=== PATIENT | female | born 1985 | race Caucasian/White ===

== ENCOUNTER 2017-01-10 09:25 | Emergency (ER) | payer OTHER | END 2017-01-10 14:35 | disposition home or self-care (01) | DX: K80.20 Calculus of gallbladder without cholecystitis without obstruction (principal); E28.2 Polycystic ovarian syndrome ==

== ENCOUNTER 2017-02-26 06:11 | Day surgery (SDC) | payer OTHER ==
[2017-02-26] MEDS ORDERED: LACTATED RINGERS 1,000 ML IV ONE ×3 (07:03→11:51)
[2017-02-26] MEDS ORDERED: ceFAZolin 2 GM/50 ML 50 ML IV ONE (07:06)
[2017-02-26] MEDS ORDERED: PHENYLEPHRINE 10 MG/ML VIAL IV ONE (07:25)
[2017-02-26] MEDS ORDERED: KETAMINE 500 MG/10 ML VIAL IVP ONE (07:25)
[2017-02-26] MEDS ORDERED: ONDANSETRON 4 MG/2 ML VIAL IVP ONE (07:25)
[2017-02-26] MEDS ORDERED: SUCCINYLCHOLINE 200 MG/10 ML VIAL IVP ONE (07:25)
[2017-02-26] MEDS ORDERED: KETOROLAC 30 MG/ML VIAL IVP ONE (07:25)
[2017-02-26] MEDS ORDERED: PROPOFOL 200 MG/20 ML VIAL IVP ONE (07:25)
[2017-02-26] MEDS ORDERED: LIDOCAINE-MPF 2% 5 ML VIAL IM ONE (07:25)
[2017-02-26] MEDS ORDERED: MIDAZOLAM 2 MG/2 ML VIAL IVP ONE (07:25)
[2017-02-26] MEDS ORDERED: fentaNYL 100 MCG/2 ML VIAL IVP ONE (07:25)
[2017-02-26] MEDS ORDERED: ROCURONIUM 50 MG/5 ML VIAL IVP ONE (07:25)
[2017-02-26] MEDS ORDERED: DEXAMETHASONE 4 MG/ML VIAL IVP ONE (07:25)
[2017-02-26] MEDS ORDERED: BUPIVACAINE 0.5% PF 30 ML VIAL INFIL ONE ×2 (08:14)
[2017-02-26] MEDS ORDERED: HYDROcod/ACETAM 5/325 MG TABLET ONE (10:23)
[2017-02-26] MEDS ORDERED: ONDANSETRON 4 MG/2 ML VIAL ONE (11:32)
== END 2017-02-26 06:12 | disposition home or self-care (01) ==
PROC: 0FT44ZZ Resection of Gallbladder, Percutaneous Endoscopic Approach (ICD-10-PCS; principal; 2017-02-26 07:30)
DX: K80.10 Calculus of gallbladder with chronic cholecystitis without obstruction (principal); K82.8 Other specified diseases of gallbladder; Z88.5 Allergy status to narcotic agent; E66.9 Obesity, unspecified; Z68.39 Body mass index [BMI] 39.0-39.9, adult
CPT/HCPCS: 47562; 81025; A9270; J0690; J7120

== ENCOUNTER 2017-03-01 09:29 | Emergency (ER) | payer OTHER ==
--- NOTE | 2017-03-01 12:22 | ED Physician Documentation ---
History of Present Illness - Stated complaint Stated Complaint: VOMITING - Chief complaint Chief Complaint: Neuro - Additonal information Additional information: 31-year-old female with no past medical history status post cholecystectomy 3 days ago here with headache, nausea, vomiting. Patient developed a mild headache last night, resolved with 2 Vicodin. Today, she has been having worse pain in her head and developed nausea and vomiting. Vomiting is nonbloody and nonbilious. She also reports increase in her right upper part her pain. She denies fevers, but has had chills and sweats today. She denies any associated numbness or weakness. Review of Systems Ten Systems: 10 systems reviewed and negative Constitutional: reports: Chills. denies: Fever Cardiac: denies: Chest pain / pressure Respiratory: denies: Dyspnea GI: reports: Abdominal Pain, Nausea, Vomiting Neurologic: reports: Headache PD PAST MEDICAL HISTORY - Past Medical History Cardiovascular: None Respiratory: None, Other Endocrine/Autoimmune: Other GI: Other : None HEENT: Other Psych: Depression, Anxiety Musculoskeletal: None Derm: None - Past Surgical History Past Surgical History: No General: Cholecystectomy - Present Medications Home Medications: Ambulatory Orders Medication Instructions Recorded Confirmed Cephalexin [Keflex] 500 mg PO Q6H 7 Days 03/01/17 Ondansetron Odt [Zofran] 4 mg TL Q6H PRN #10 tablet 03/01/17 - Allergies Allergies/Adverse Reactions: Allergies Allergy/AdvReac Type Severity Reaction Status Date / Time codeine AdvReac Nausea Verified 03/01/17 09:36 oxycodone AdvReac Nausea Verified 03/01/17 09:36 - Social History Does the pt smoke?: No Smoking Status: Never smoker Does the pt drink ETOH?: Yes Does the pt have substance abuse?: No - Immunizations Immunizations are current?: Yes PD ED PE NORMAL - Vitals Vital signs reviewed: Yes - General General: Alert and oriented X 3, No acute distress - HEENT HEENT: PERRL - Neck Neck: Supple, no meningeal sign - Cardiac Cardiac: RRR, No murmur - Respiratory Respiratory: Clear bilaterally - Abdomen Abdomen: Normal bowel sounds, Soft, Non distended, Other (Right upper quadrant tenderness to palpation. Healing port sites with Steri-Strips over them.) - Derm Derm: Warm and dry - Extremities Extremities: No deformity - Neuro Neuro: Alert and oriented X 3, nursery attendant 2-12 intact, No motor deficit, No sensory deficit, Normal speech (Normal finger-nose, normal heel ramesh, no pronator drift) - Psych Psych: Normal mood, Normal affect Results - Vitals Vitals: Vital Signs - 24 hr 03/01/17 03/01/17 03/01/17 09:34 12:13 13:10 Temperature 36.7 C Heart Rate 79 95 86 Respiratory 18 18 18 Rate Blood Pressure 108/73 110/61 103/66 O2 Saturation 100 100 100 03/01/17 03/01/17 13:51 15:04 Temperature Heart Rate 74 86 Respiratory 18 16 Rate Blood Pressure 126/76 112/78 O2 Saturation 100 99 Oxygen O2 Source Room air - Labs Labs: Laboratory Tests 03/01/17 03/01/17 03/01/17 12:16 12:23 12:23 WBC 12.5 H RBC 4.92 Hgb 14.0 Hct 41.2 MCV 83.7 MCH 28.4 MCHC 34.0 RDW 13.1 Plt Count 270 MPV 9.8 Neut # 9.8 H Lymph # 2.0 [place] # 0.5 Eos # 0.1 Baso # 0.1 Absolute Nucleated RBC 0.00 Nucleated RBCs 0.0 Sodium 137 Potassium 4.2 Chloride 101 Carbon Dioxide 27 Anion Gap 9.0 BUN 9 Creatinine 0.8 Estimated GFR (MDRD) 85 L Glucose 92 Calcium 9.5 Total Bilirubin 0.6 AST 58 H ALT 77 H Alkaline Phosphatase 65 Total Protein 7.7 Albumin 4.4 Globulin 3.3 Albumin/Globulin Ratio 1.3 Lipase 25 Urine Color YELLOW Urine Clarity CLOUDY Urine pH 8.0 H Ur Specific [place] 1.015 Urine Protein NEGATIVE Urine Glucose (UA) NEGATIVE Urine Ketones NEGATIVE Urine Occult Blood TRACE-INTA Urine Nitrite NEGATIVE Urine Bilirubin NEGATIVE Urine Urobilinogen 0.2 (NORMAL) Ur Leukocyte Esterase MODERATE H Urine RBC 0-5 Urine WBC 11-25 H Ur Squamous Epith Cells MANY Squamous H Urine Bacteria Few Ur Microscopic Review INDICATED Urine Culture Comments NOT INDICATED Urine HCG, Qual NEGATIVE - Rads (name of study) ruq us Radiology: EMP read contemporaneously, See rad report (Fatty liver, postop changes, CBD 6 mm, no free fluid) PD MEDICAL DECISION MAKING - ED course Complexity details: reviewed results, re-evaluated patient, considered differential, d/w patient, d/w travel sales consultant ED course: 31-year-old female status post cholecystectomy 3 days ago here with nausea, vomiting, headache, not feeling well. Differential diagnosis includes but is not limited to postoperative infection versus retained biliary stone in the common bile duct versus electrolyte abnormality versus migraine headache. Patient's neurologic exam is normal. CBC shows mild leukocytosis. CMP shows mildly elevated LFTs. Patient was given fluid and Toradol in the emergency department, and felt much better. , general surgery, came to evaluate her. Her CBD on ultrasound was 6 mm. Patient tolerated by mouth and was amenable to discharge with Zofran and Keflex for UTI and followup with her primary care physician. She has been given very strict return precautions. This document was made in part using voice recognition software. While efforts are made to proofread this document, sound alike and grammatical errors may occur. Departure - Departure Disposition: 01 Home, Self Care Clinical Impression: Headache, Vomiting, Urinary tract infection Condition: Stable Instructions: ED Cephalgia Unspecified, ED UTI Cystitis Female, ED Vomiting Diarrhea Nonspecific Ad Follow-Up: Bobo Coates MD [Primary Care Provider] - Within 1 week Prescriptions: Cephalexin [Keflex] 500 mg PO Q6H 7 Days Ondansetron Odt [Zofran] 4 mg TL Q6H PRN #10 tablet PRN Reason: Nausea / Vomiting Comments: Please followup this week with your primary care physician. Take antibiotics as prescribed. Return to the ER for any worsening fevers, chills, abdominal pain, or for any other medical emergency.Your blood pressure was elevated today on check in to the emergency department. This does not mean that you have hypertension, it is a common phenomenon to check into the emergency department and have elevated blood pressure. I recommend that you see your primary care physician within the week to have it rechecked when you're feeling better. Discharge Date/Time: 03/01/17 15:05
[2017-03-01] MEDS: SODIUM CHLORIDE 0.9% 1,000 ML IV ONE (12:25)
[2017-03-01 12:39] LABS: BASOPHILS # (AUTO) 0.1 10^3/uL (0.0-0.1); BASOPHILS % (AUTO) 0.6 %; EOSINOPHILS # (AUTO) 0.1 10^3/uL (0.0-0.7); EOSINOPHILS % (AUTO) 0.6 %; HCT - HEMATOCRIT 41.2 % (37.0-47.0); LYMPHOCYTES % (AUTO) 15.9 %; MEAN CORPUSCULAR HEMOGLOBIN 28.4 pg (27.0-31.0); MEAN CORPUSCULAR VOLUME 83.7 fL (81.0-99.0); MEAN PLATELET VOLUME 9.8 fL (7.9-10.8); MONOCYTES # (AUTO) 0.5 10^3/uL (0.0-1.0); MONOCYTES % (AUTO) 4.1 %; NEUTROPHILS # (AUTO) 9.8 10^3/uL (1.5-6.6); NEUTROPHILS % (AUTO) 78.8 %; RED BLOOD COUNT 4.92 10^6/uL (4.20-5.40); RED CELL DISTRIBUTION WIDTH 13.1 % (12.0-15.0); UNCORRECTED WHITE BLOOD COUNT 12.5 x10^3/uL; WHITE BLOOD COUNT 12.5 x10^3/uL (4.8-10.8)
[2017-03-01 12:47] LABS: BILIRUBIN,URINE NEGATIVE (NEGATIVE)
[2017-03-01 12:50] LABS: HCG UR QUAL NEGATIVE; UA w/ MICROSCOPIC CHARGE YES
[2017-03-01 12:53] LABS: ALBUMIN/GLOBULIN RATIO 1.3 (1.0-2.2); BILIRUBIN,TOTAL 0.6 mg/dL (0.2-1.0); CALCIUM 9.5 mg/dL (8.5-10.3); CREATININE 0.8 mg/dL (0.4-1.0); POTASSIUM 4.2 mmol/L (3.5-5.0); TOTAL PROTEIN 7.7 g/dL (6.7-8.2)
[2017-03-01] MEDS ORDERED: KETOROLAC 30 MG/ML VIAL ONE (13:04)
[2017-03-01] MEDS ORDERED: ONDANSETRON 4 MG/2 ML VIAL ONE (13:04)
[2017-03-01] MEDS: ONDANSETRON 4 MG/2 ML VIAL IVP STA (13:06)
[2017-03-01] MEDS: KETOROLAC 30 MG/ML VIAL IVP STA (13:06)
[2017-03-01 13:08] LABS: UR CULTURE IF IND NOT INDICATED
[2017-03-01] MEDS ORDERED: cefTRIAXone 1 GM VIAL ONE (13:59)
[2017-03-01] MEDS: cefTRIAXone 1 GM in SODIUM CHLORIDE 0.9% MINIBAG 100 ML IV STA (14:02)
--- NOTE | 2017-03-01 14:15 | Ultrasound Report ---
RIGHT UPPER QUADRANT ULTRASOUND: 03/01/2017 CLINICAL INDICATION: Status post cholecystectomy, pain. COMPARISON: 01/10/2017. TECHNIQUE: Real-time scanning was performed with reimbursement representative static images obtained. FINDINGS: The liver measures 18.2 cm. Hepatic echogenicity is again increased, compatible with fatty infiltration. No focal parenchymal lesion or intrahepatic biliary dilatation is present. The common bile duct measures 6 mm. The patient is status post cholecystectomy. The right kidney measures 10.8 c m, and demonstrates no hydronephrosis. No free fluid is present. IMPRESSION: FATTY INFILTRATION OF THE LIVER. POSTOPERATIVE CHANGES OF CHOLECYSTECTOMY. JOB #: [id number] EXT JOB #:
[2017-03-01 15:05] VITALS: BP 112/78
== END 2017-03-01 15:05 | disposition home or self-care (01) ==
LOC: ED 09:29
DX: N39.0 Urinary tract infection, site not specified (principal); R11.2 Nausea with vomiting, unspecified; R51 Headache; R03.0 Elevated blood-pressure reading, without diagnosis of hypertension
CPT/HCPCS: 36415; 76705; 80053; 81001; 81003; 81025; 83690; 85025; 87086; 96361; 96365; 96375; 99284